=== PATIENT | female | born 1945 | race Caucasian/White ===

== ENCOUNTER 2016-10-16 05:30 | Observation (INO) ==
[2016-10-08 14:14] LABS: Basophils # 0.1 10*3/uL (0.0-0.2); Basophils % 0.7 % (0.0-0.8); Eosinophils # 0.1 10*3/uL (0.0-0.87); Immature Granulocytes % 0.3 %; Immature Granulocytes Absolute 0.02 #; Lymphocytes # 2.1 10*3/uL (1.4-4.0); Lymphocytes % 29.1 % (21.3-54.2); Mean Corpuscular HGB Conc 29.1 GM/DL (32-36); Mean Corpuscular Hemoglobin 22 PG (27-34); Mean Platelet Volume 12.4 FL (9.6-12.0); Monocytes # 0.5 10*3/uL (0.11-0.8); Monocytes % 7.5 % (1.7-12.7); Neutrophils # 4.3 10*3/uL (1.4-7.4); Neutrophils % 60.4 % (38.7-73.9); Platelet Count 279 T/CUMM (130-400); Red Blood Count 4.65 MC/CUMM (3.8-5.5); Red Cell Distribution Width 17.2 % (9.3-17.3); White Blood Count 7.1 T/CUMM (4-12)
[2016-10-08 14:26] LABS: Apearance,Urine CLOUDY (Clear); Bilirubin,Urine Negative (Negative); Blood, Urine Negative (Negative); Glucose,Urine (UA) Negative (Negative); Ketones,Urine 5 mg/dL (Negative); Mucus,Urine Occasional /LPF (Occasional); Nitrite,Urine Negative (Negative); Protein,Urine Negative; RBC,Urine 2 /HPF (0-4); Squamous Epithelial Cell,Urine Occasional /HPF (0-10); Urine Color Yellow (Yellow); Urine Specific Gravity 1.017 (1.001-1.035); Urine Urobilinogen < 2.0 EU/DL (0.2-1.0); WBC,Urine 4 /HPF (0-6)
[2016-10-08 14:33] LABS: Osmolality,Calculated 282.3 MOS/KG (273-304); Potassium 4.3 MMOL/L (3.5-5.1)
[2016-10-08 14:35] LABS: PT Patient Result 10.4 SECS; Partial Thromboplastin Time 27.6 SECS (0-40)
[2016-10-08 14:47] LABS: Hematocrit 34.4 VOL% (35.7-47.0)
--- NOTE | 2016-10-08 14:54 | XRay Report ---
XR chest 2V Indication: Respiratory preoperative evaluation Comparison: None available Findings: The cardiac size appears normal. There is moderate-sized hiatal hernia present. The pulmonary vascularity is normal in caliber. No lung infiltrates, effusions, pneumothorax or other abnormality is demonstrated. Impression: Moderate size hiatal hernia. No other abnormality seen. PROCEDURE INTERPRETED AT [facility] DEPARTMENT OF RADIOLOGY Final Report Signed by: Dr. Hubert Reyes
[2016-10-08 19:55] LABS: Elliptocytes Few; Hypochromasia Slight; Platelet Estimate Normal; Poikilocytosis Slight
--- NOTE | 2016-10-09 08:12 | EKG Report ---
Stationary ECG Study [facility] Test Date: 10/08/2016 2:41:15 PM Pat Name: KASEY PULLIAM Department: Room: Gender: F Buzzle Buffer: CINTHYA 10/16/16 : 1945 Requested by: Mayank Aguilar Order Number: [id number] Royal MD: DONNIE PARIS Intervals [place] Rate: 61 P: 72 NV: 169 QRS: 62 QRSD: 85 T: 65 QT: 416 QTc: 419 Interpretive Statements SINUS RHYTHM Electronically Signed On 10-10-16 12:29:35 CDT by DONNIE PARIS [email or web address]
[2016-10-16] MEDS ORDERED: DIAZEPAM 5 MG TABLET PO ONE (06:34)
[2016-10-16] MEDS ORDERED: FAMOTIDINE 20 MG TABLET PO ONE (06:34)
--- NOTE | 2016-10-16 06:37 | History and Physical Update ---
History and Physical Update - History and Physical H&P was reviewed, the patient examined and there: are no changes in the patients condition since last H&P was completed.
[2016-10-16] MEDS ORDERED: ceFAZolin 1,000 MG VIAL ONE (06:50)
[2016-10-16] MEDS ORDERED: SODIUM CHLORIDE 0.9% 100 ML IV ONE (06:51)
[2016-10-16] MEDS ORDERED: DIAZEPAM 5 MG TABLET ONE (06:51)
[2016-10-16] MEDS ORDERED: FAMOTIDINE 20 MG TABLET ONE (06:51)
[2016-10-16] MEDS ORDERED: LACTATED RINGERS 1,000 ML IV SCH (07:00)
[2016-10-16] MEDS ORDERED: TISSUE ADHESIVE 1 EACH APPLICATOR TOP ONE (09:03)
[2016-10-16] MEDS ORDERED: MINERAL OIL (TOPICAL) 25 ML BOTTLE TOP ONE (09:04)
--- NOTE | 2016-10-16 09:07 | Anesthesia Post-Op ---
Anesthesia Post OP - Post Ansesthetic Evaluation Patient seen in post op: Yes Resp: within normal limits CV: within normal limits Mental: within normal limits Temp: within normal limits Pmyc-La-Ezifozulo: within normal limits Nausea and Vomiting: within normal limits Pain: within normal limits
[2016-10-16] MEDS ORDERED: LIDOCAINE 2%/EPI 20 ML VIAL ONE (10:12)
[2016-10-16] MEDS ORDERED: ESTRADIOL 0.01% VAG CREAM 42.5 GM TUBE VAG ONE (10:13)
[2016-10-16 10:20] LABS: Apearance,Urine Slightly Hazy (Clear); Bacteria,Urine Occasional /HPF (Few); Bilirubin,Urine Negative (Negative); Blood, Urine Small mg/dL (Negative); Glucose,Urine (UA) Negative (Negative); Ketones,Urine 20 mg/dL (Negative); Mucus,Urine Moderate /LPF (Occasional); Nitrite,Urine Negative (Negative); Protein,Urine Negative; RBC,Urine 3 /HPF (0-4); Squamous Epithelial Cell,Urine Occasional /HPF (0-10); Urine Color Yellow (Yellow); Urine Specific Gravity 1.019 (1.001-1.035); Urine Urobilinogen < 2.0 EU/DL (0.2-1.0); WBC,Urine 4 /HPF (0-6)
--- NOTE | 2016-10-16 12:01 | OB/GYN History & Physical ---
History of Present Illness Chief complaint: Symptomatic uterine prolapse cystocele rectocele midline pain History of present illness: Ms. Garrett is a 71 year old female With history of stage III symptomatic uterine prolapse with grade 3 cystocele and rectocele and probable enterocele and midline pelvic pain he requests definitive surgical treatment about consist of single cytological hysterectomy bilateral salpingectomy Francisco culdoplasty cystoscopy and anterior posterior colporrhaphy. The risks benefits and alternatives were explained to the patient in detail and informed us is obtained for the above procedures and all questions were answered to the patient's satisfaction Home Medications Medication Instructions Recorded Confirmed Type Loratadine/Pseudoephedrine 1 each PO DAILY 10/08/16 10/16/16 History [Claritin-D 24 Hour Tablet] Nitrofurantoin Monohyd/M-Cryst 500 mg PO DIRECTED 10/08/16 10/16/16 History [Macrobid 100 mg Capsule] Allergies Allergy/AdvReac Type Severity Reaction Status Date / Time iron Allergy Severe Diarrhea Verified 10/16/16 06:56 Sulfa (Sulfonamide Allergy Severe Swelling Verified 10/16/16 06:56 Antibiotics) of Lip/Tongue/Throat 12 point system: reviewed and no additional remarkable complaints except as stated Medical,Surgical,& Family Hx - Medical History Cardio: History of: PVD, Cardiovascular Problems (HX SKIP IN HEART NO BAKER HELPER) Respiratory: History of: Respiratory Problems (SMALL AIRWAY) Genitourinary: History of: Bladder Problem (PROLAPSE BLADDER), Recurring Urinary Tract Infections (CHRONIC TAKES MACROBID) Gastrointestinal: History of: GI Problems (SPASTIC COLON) Hematology: History of: Anemia - Surgical History HEENT Surgeries: Surgical HX of: Eye Surgery (CATARACTS), Tonsilectomy & Adenoidectomy Orthopedic Surgeries: Surgical HX of;: Implanted Devices, Orthopedic Surgery ( LEFT ANKLE) - Family History Family History: Reports;: Family Diabetes (GM), Family Heart Disease (DAD) - Social History Smoking Status: Never smoker Frequency of Alcohol Use: None Type of Drug Use: None Exam [employer] - Constitutional Vitals: Vital Signs Temp Pulse Resp BP Pulse Ox 10/16/16 07:01 97.4 F L 68 16 150/75 95 General appearance: normal weight, no acute distress - Head Head exam: Present: normal inspection, normocephalic, atraumatic - Neck Neck exam: Present: normal inspection - Respiratory Respiratory exam: Present: clear to auscultation bilaterally - Breast Breasts: as per HPI Menstruation: as per HPI - Cardiovascular Cardiovascular exam: Present: regular rate and rhythm - GI/Abdominal GI/Abdominal exam: Present: normal bowel sounds - Extremities Exam Extremities exam: Present: normal inspection, normal capillary refill - Back Exam Back exam: Present: normal inspection - Neurological Exam Neurological exam: Present: alert, oriented X3 - Psychiatric Psychiatric exam: Present: normal affect, normal mood - Skin Skin exam: Present: normal color, warm Assessment and Plan (1) Uterovaginal prolapse, incomplete Status: Acute Current Visit: Yes (2) Cystocele Status: Acute Current Visit: Yes (3) Rectocele Status: Acute Current Visit: Yes (4) Pelvic pain in female Status: Acute Current Visit: Yes Results - Labs CBC & BMP: 10/08/16 14:07 10/08/16 14:07
--- NOTE | 2016-10-16 12:15 | Operative Note ---
Date of procedure: 10/16/16 Pre-op diagnosis: Stage III uterovaginal prolapse grade 3 cystocele rectocele midline pain Post-op diagnosis: same Procedure: Procedure 1. Single site total laparoscopic hysterectomy 2. Bilateral salpingo -oophorectomy 3. Francisco culdoplasty 4. Anterior posterior colporrhaphy 5. Cystoscopy 6. Enterocele repair After the risks benefits and alternatives were explained to the patient in detail and informed consent was obtained the patient was taken to the operating room where she was placed in the supine position. After achieving appropriate general endotracheal anesthesia the patient was carefully repositioned to the low lithotomy position in Gerry stirrups. The perineum vagina and abdomen were prepped and draped in usual sterile fashion. A Mckeon catheter was placed which is revealed clear urine. After the appropriate time out a weighted speculum was placed in the vagina anterior lip the cervix grasped with single-tooth tenaculum and uterus sounded to 8 cm. There was noted to be stage III prolapse with grade 3 cystocele and rectocele and probable enterocele. A medium sized V care manipulator was placed into the uterus secured to the anterior posterior lips of the cervix using 0 Vicryl suture tightened in position with appropriate confirmation confirmed digitally as well as visibly and a Michelle balloon occluder was backloaded on the apparatus to maintain pneumo occlusion After regloving with the patient flattened and no G-tube in place a intraumbilical incision was made using a #11 knife. The overlying connective tissue was bluntly dissected away using S retractors the fascia identified grasped to [place] clamps and entered sharply using the curved Man scissors. The peritoneum was entered bluntly using finger dissection and a single site multi GelPort was placed using applicator through the intraumbilical incision into the abdomen in the appropriate fashion. The abdomen was then insufflated and a 5 mm flexible scope was used to explore the abdomen pelvis. There is no evidence of any damage to any underlying structures. The patient was then placed in slight Trendelenburg bowel swept away cephalad using blunt probe and the pelvis inspected. The uterus was noted to be 8 weeks size tubes and ovaries are visualized noted to be atrophic. The IP ligaments were identified above the level of the ureters and taken down using the thunder beat halo and a double burn technique. This was carried out through the round ligaments bilaterally while maintaining cephalad traction on the V care manipulator. Again while maintaining cephalad traction on the manipulator by me a bladder flap was created anteriorly off the lower uterine segment using monopolar scissors. The bladder was then bluntly dissected caudad using the back of the scissors and cephalad traction on the manipulator. The uterine vessels were then skeletonized bilaterally and taken down using the thunder beat halo and a double burn technique. The cervix was then transected from the vagina at the level vaginal fornices beginning between the uterosacral ligaments while maintaining cephalad traction on the manipulator by me. This was performed using monopolar scissors and the rim of the V care manipulator was used as a template. The specimen was then moved to the mid vagina. Hemostasis of all areas was noted to be excellent. Both ureters were visualized throughout the course of the surgical procedure and noted to be peristalsing. The vaginal cuff was then closed using 0V lock suture in a running fashion beginning at the right angle and overlapping back past the midline. Uterosacral ligaments were reefed in the midline in a Francisco fashion while again paying close attention course the ureters bilaterally. Again all areas are noted to be hemostatic all instruments were removed the patient placed back in a flat position the abdomen completely desufflated and the single site multi GelPort was removed the umbilical fascia closed with 0 Vicryl suture in a running fashion and the skin closed with 4-0 Vicryl suture in subcuticular fashion followed by Jaja and this was done by Keke Lopez. The Mckeon catheter was then removed cystoscopy was performed there is no evidence of any compromise of the bladder wall or urethra and there was good reflux from both ureteral orifice ease following the administration of Lasix IV. The Mckeon catheter was then replaced. Weighted speculum was then placed back in the vagina and the anterior vaginal mucosa grasped in the midline at the level of bladder neck and the vaginal cuff using Allis clamps. The submucous tissue was infiltrated with half percent lidocaine with epinephrine and a midline incision made in the anterior vaginal mucosa in the midline using a #15 knife. Metzenbaum scissors were used to dissect away the pubocervical fascia and blunt dissection was also used to dissect this down. The pubocervical fascia was then reapproximated in the midline using 0 Monocryl suture in a [id number]-[id number]-iytqc fashion. This was done in multiple sutures. The vaginal cuff was then trimmed using Metzenbaum scissors and the anterior vaginal mucosa then closed using 2-0 Monocryl suture in a running interlocking fashion. There was good elevation of the anterior vaginal mucosa. There was also good apical support of the cuff. The vaginal cuff was reinforced with 0 Monocryl suture in running interlocking fashion. The weighted speculum was then removed Renetta retractor was placed in the vagina the posterior vaginal mucosa identified again grasped at the vaginal cuff and at the introitus in the central midline using Allis clamps infiltrated with half percent lidocaine with epinephrine and a midline incision made using # 15 knife. The underlying levator fascia was dissected away using Metzenbaum scissors and finger dissection. There was noted to be an enterocele. The enterocele sac was entered the enterocele reduced and closed using 0 Monocryl suture in a pursestring fashion. The levator fascia was then reapproximated in the midline using 0 Monocryl suture in a oztuum-ao-djarw fashion and multiple sutures. The posterior vaginal mucosa was then trimmed using Metzenbaum scissors and closed using 2-0 Monocryl suture in a running interlocking fashion. Upon completion procedure all areas are noted to be hemostatic and the ball was able to accommodate 2 fingers easily. There is noted to be good elevation of the apex. There was complete reduction of the cystocele and rectocele and enterocele. The vault was then packed with 2 inch gauze soaked in Estrace vaginal cream patient taken out of the lithotomy position woke from anesthesia without complication taken to recovery room in stable condition Anesthesia: GETA Surgeon / Physician: Mayank Carmichael Estimated blood loss: minimal Specimens: other (Uterus cervix tubes and ovaries to pathology) Condition: stable Disposition: floor Results - Labs CBC & BMP: 10/08/16 14:07 10/08/16 14:07 Discharge Plan - Discharge Data Disposition: Disch To Home/Self Care Condition at Discharge: Stable Discharge Diet: advance to your usual diet Activity: increase activity as tolerated, no lifting Hygiene: may shower Weight Bearing at Discharge: full weight bearing Driving: not until seen by doctor Contact your physician if you experience:: fever over 101, Difficulty voiding, Redness or swelling, Nausea/Vomiting, Shortness of breath, Bleeding, pain uncontrolled by pain medications - Discharge Medications New HYDROcodone/ACETAMIN 7.5-325 [[place] 7.5-325] 1 tablet PO Q4H PRN #20 tablet PRN Reason: Abdominal Pain Continue Nitrofurantoin Monohyd/M-Cryst [Macrobid 100 mg Capsule] 500 mg PO DIRECTED Loratadine/Pseudoephedrine [Claritin-D 24 Hour Tablet] 1 each PO DAILY - Follow Up or Referral Follow Up: Mayank Carmichael MD [Physician] - 2 Weeks - Forms/Instructions
[2016-10-16] MEDS ORDERED: IBUPROFEN 800 MG TABLET PO PRN (12:19)
[2016-10-16] MEDS ORDERED: MAGNESIUM HYDROXIDE SUSP 30 ML UDCUP PO PRN (12:19)
[2016-10-16] MEDS ORDERED: oxyCODONE/ACETAMINOPHEN 5-325 MG TABLET PO PRN (12:19)
[2016-10-16] MEDS ORDERED: DOCUSATE SODIUM 100 MG CAPSULE PO PRN (12:19)
[2016-10-16] MEDS ORDERED: BENZOCAINE/MENTHOL LOZENGE 18/BOX PO PRN (12:19)
[2016-10-16] MEDS ORDERED: BISACODYL 10 MG SUPP RECTAL PRN (12:19)
[2016-10-16] MEDS ORDERED: ACETAMINOPHEN 325 MG TABLET PO PRN (12:19)
[2016-10-16] MEDS ORDERED: LACTATED RINGERS 1,000 ML IV ONE (12:32)
[2016-10-16] MEDS ORDERED: MIDAZOLAM 2 MG/2 ML VIAL ONE (12:32)
[2016-10-16] MEDS ORDERED: DESFLURANE 1 UNIT/15 MINUTE INH ONE (12:33)
[2016-10-16] MEDS ORDERED: ONDANSETRON 4 MG/2 ML VIAL IV PRN (12:36)
[2016-10-16] MEDS ORDERED: HYDROmorphone 2 MG/1 ML VIAL IV PRN (12:36)
[2016-10-16] MEDS ORDERED: ONDANSETRON 4 MG/2 ML VIAL ONE (12:39)
[2016-10-16] MEDS: ONDANSETRON 4 MG/2 ML VIAL IV PRN ×3 (15:36→23:30)
[2016-10-16] MEDS: LACTATED RINGERS 1,000 ML IV SCH (18:38)
--- NOTE | 2016-10-16 22:02 | OB/GYN Progress Note ---
Assessment and Plan (1) Uterovaginal prolapse, incomplete Status: Acute Current Visit: Yes (2) Cystocele Status: Acute Current Visit: Yes (3) Rectocele Status: Acute Current Visit: Yes (4) Pelvic pain in female Status: Acute Current Visit: Yes DIE TURNER - PN: Subj Interval history: Patient is doing well. She is tolerating her diet. She is alert and oriented -3 Cardiovascular regular rate and rhythm Lungs clear to auscultation Abdomen soft with appropriate tenderness and bowel sounds are present and her incision is dry no bleeding Is good refill HEENT shows pink conjunctiva assessment 1 day of surgery doing well Plan continue present management with expected DC in a.m. Exam DIE TURNER - Constitutional Vitals: Vital Signs Temp Pulse Pulse Resp BP BP Pulse Ox 10/16/16 20:15 98.4 F 71 20 131/72 10/16/16 17:04 71 18 131/72 10/16/16 16:00 97.4 F L 87 20 157/80 10/16/16 15:00 77 18 137/69 10/16/16 14:30 73 20 145/71 10/16/16 14:04 82 18 138/82 10/16/16 13:30 74 18 142/78 10/16/16 13:01 98.5 F 16 134/71 10/16/16 13:00 98.5 F 66 16 134/71 96 10/16/16 12:52 98.1 F 67 16 127/55 98 10/16/16 12:40 65 16 135/76 98 10/16/16 12:30 72 14 135/63 97 10/16/16 12:25 58 L 16 142/67 97 10/16/16 12:20 66 18 128/56 100 10/16/16 12:15 72 22 125/68 100 10/16/16 12:10 98.1 F 65 16 125/59 97 10/16/16 07:01 97.4 F L 68 16 150/75 95 Pulse Ox 10/16/16 20:15 95 10/16/16 17:04 98 10/16/16 16:00 96 10/16/16 15:00 98 10/16/16 14:30 98 10/16/16 14:04 97 10/16/16 13:30 98 10/16/16 13:01 96 10/16/16 13:00 04/25/17 12:52 10/16/16 12:40 10/16/16 12:30 10/16/16 12:25 10/16/16 12:20 10/16/16 12:15 10/16/16 12:10 10/16/16 07:01 Results - Labs CBC & BMP: 10/08/16 14:07 10/08/16 14:07
[2016-10-17] MEDS: LACTATED RINGERS 1,000 ML IV SCH ×2 (02:44→16:54)
[2016-10-17] MEDS: ONDANSETRON 4 MG/2 ML VIAL IV PRN ×2 (06:15→10:13)
[2016-10-17 06:22] LABS: Basophils % 0.1 % (0.0-0.8); Eosinophils % 0.1 % (0.00-10.9); Hematocrit 31.9 VOL% (35.7-47.0); Hemoglobin 9.3 GM/DL (12.0-16.0); Immature Granulocytes % 0.5 %; Immature Granulocytes Absolute 0.06 #; Lymphocytes # 1.4 10*3/uL (1.4-4.0); Lymphocytes % 12.3 % (21.3-54.2); Mean Corpuscular HGB Conc 29.2 GM/DL (32-36); Mean Corpuscular Hemoglobin 22 PG (27-34); Mean Corpuscular Volume 73.7 FL (87-102); Mean Platelet Volume 12.8 FL (9.6-12.0); Monocytes # 0.8 10*3/uL (0.11-0.8); Monocytes % 7.1 % (1.7-12.7); Neutrophils % 79.9 % (38.7-73.9); Platelet Count 227 T/CUMM (130-400); Red Blood Count 4.33 MC/CUMM (3.8-5.5); White Blood Count 11.3 T/CUMM (4-12)
--- NOTE | 2016-10-17 10:55 | Pathology Report from [facility] ---
ACCESSION # : [id number] PATIENT NAME : Alexandra Garrett ORDERING DR : OLINDA MENDES MD CLINICAL HX: Bladder prolapse POST-OP DX: Same SPECIMEN INFO: Uterus, cervix, RT & LT tube & ovary GROSS DESCRIPTION: The specimen is received in formalin labeled with the patient 's name and consists of a 42 gram uterus and cervix which measures 7.0 x 5.0 x 2.8 cm. The serosa is red-murrell and free of adhesions. The cervix measures 3.0 cm. The cervical os measures 0.8 cm. The endocervical canal is patent with a 0.7 x 0.5 x 1.0 cm endocervical polyp noted. The endometrial cavity has an average mucosal thickness of 0.1 cm with a 1.3 x 0.8 cm polypoid area noted. Sectioning reveals no gross abnormalities. The right ovary measures 2.2 x 0.8 cm. Sectioning reveals no gross abnormalities. The adjacent fallopian tube is fimbriated and measures 6.0 x 0.5 cm with a 1.0 cm paratubal cyst noted which contains murrell purulent material. The left ovary measures 2.2 x 1.0 cm. Sectioning reveals no gross abnormalities. The adjacent fallopian tube is fimbriated measuring 5.0 x 0.5 cm which grossly appears to have been previously transected. Sections submitted: A cervix, B and C endomyometrium, D posterior uterine serosa, E right ovary and tube, F left ovary and tube. DIAGNOSIS FOR ALEXANDRA GARRETT: UTERUS, CERVIX, RIGHT AND LEFT TUBES AND OVARIES : Chronic cystic cervicitis with ulceration. Cystic atrophic endometrium. Superficial adenomyosis. Right ovary with atrophic changes and fibrosis; fallopian tube with paratubal cyst. Left ovary with atrophic changes; fallopian tube. SERVICE DATE: 10/16/2016 REPORT DATE: 10/17/2016 PATHOLOGIST: Isaac Olivarez
[2016-10-17] MEDS ORDERED: PROMETHAZINE 25 MG/1 ML VIAL IM PRN (12:09)
[2016-10-17] MEDS ORDERED: LORATADINE 10 MG TABLET PO SCH (13:00)
[2016-10-17] MEDS ORDERED: PSEUDOEPHEDRINE 30 MG TABLET PO SCH (13:00)
[2016-10-17] MEDS ORDERED: METOCLOPRAMIDE 10 MG/2 ML VIAL IV SCH (13:00)
[2016-10-17 16:07] VITALS: BP 122/52
== END 2016-10-17 17:06 | disposition home or self-care (01) ==
LOC: N.OR 05:30 → N.2E 05:30 → N.SDSINP 05:34 → N.2E 11:50
PROVIDERS: ADMIT Specialist; ATTEND Specialist